=== PATIENT | female | born 1990 | race Caucasian/White ===

== ENCOUNTER 2023-01-27 10:26 | Emergency (ER) | payer OTHER ==
[~2023-01-27] VITALS: Ht 162.6 cm; Wt 102.9 kg
[2023-01-27] MEDS ORDERED: THERPAK3 PO (10:48)
[2023-01-27 13:59] LABS: RSV AMPLIFICATION NEGATIVE (NEGATIVE)
[2023-01-27] MEDS ORDERED: BENZ200C70 PO (14:24)
[2023-01-27] MEDS ORDERED: VENTAER INH (14:24)
[2023-01-27 14:32] VITALS: BP 122/81; TEMP 99; O2SAT 98
== END 2023-01-27 14:31 | disposition home or self-care (01) ==
LOC: M ED 10:26
DX: J10.89 Influenza due to other identified influenza virus with other manifestations (principal)